=== PATIENT | female | born 1995 | race Caucasian/White ===

== ENCOUNTER 2021-07-17 20:45 | Emergency (ER) | payer MEDICAID, SELFPAY ==
[2021-07-17 20:48] VITALS: BP 180/111; PULSE 88; RESP 16; TEMP 36.4; O2SAT 97; BMI 35.2
[2021-07-17 20:50] VITALS: BP 180/111; PULSE 88; RESP 16; TEMP 36.4; O2SAT 97
--- NOTE | 2021-07-17 21:40 | RAD_ITS ---
STUDY: X-RAY CHEST REASON FOR EXAM: Female, 25 years old. Cough TECHNIQUE: PA and lateral views of the chest. COMPARISON: None. FINDINGS: Findings minimal linear density in the right lower lobe. There is slight elevation of the right hemidiaphragm. There is no demonstrated pleural abnormality. Normal size heart. Normal mediastinum and charley. Normal visualized pulmonary arteries. Normal visualized aortic arch and descending thoracic aorta. Normal visualized thoracic spine. Normal visualized ribs, clavicles, and shoulders. There is no demonstrated abnormality of the visualized soft tissue structures of the upper abdomen. RAD/Chest PA and Lateral IMPRESSION: Findings most consistent with mild right lower lobe atelectasis. Electronically Signed: Eboni Garduno MD at 0:22 EDT Tel , Service support ,
--- NOTE | 2021-07-17 22:25 | EDS_ITS ---
HPI History of Present Illness Chief Complaint: Cold Sx Informant: patient Narrative Narrative: Patient was told to come in by her boss to get a Covid test. She is evidently been coughing for about 3 or 4 days. She coughed so hard that she vomited and got lightheaded and almost passed out today. She did not hurt herself. She does not have any chest pain. She is generally not dyspneic. She occasionally gets into coughing fits like this. She does have a history of allergies but denies asthma. She thinks she may have heard wheezing on occasion. I asked her about blood pressure and she denies history. She has had no travel, surgery, immobilization personal or family history of DVT or PE. There is been no hemoptysis. She has no abdominal pain. No loss of taste or smell. She is eating and drinking well. [facility] Medical History Depression Home Medications albuterol sulfate [Ventolin HFA] 2 puff INHALATION Q4H PRN PRN #1 inhaler 07/17/21 [Rx Last Taken Unknown] venlafaxine [Effexor] 75 mg PO DAILY 07/17/21 [History Last Taken Unknown] Allergy/AdvReac Type Severity Reaction Status Date / Time amoxicillin Allergy Swelling Verified 07/17/21 20:47 Penicillins [PCN] Allergy Swelling Verified 07/17/21 20:47 Surgical History History of tonsillectomy Social History Smoking Status: Never smoker ROS ROS ED Constitutional Constitutional ED: Denies chills or fever(s) Eyes Eyes: Denies change in vision ENT ENT ED: Reports rhinorrhea and sore throat; Denies ear pain Cardiovascular Cardiovascular: Denies chest pain or palpitations Respiratory/Chest Respiratory/Chest: Reports cough; Denies dyspnea, dyspnea on exertion or sputum Gastrointestinal Gastrointestinal: Reports vomiting and other Details: Vomited once posttussive. However she is not nauseated and having no abdominal symptoms. ; Denies abdominal pain, diarrhea or nausea Musculoskeletal Musculoskeletal: Denies arthralgias or myalgias Integumentary Denies rash Neurologic Neurologic: Denies headache(s) Endocrine Endocrinology: Denies polydipsia or polyuria Allergic/Immunologic Allergic/Immunologic ED: Denies urticaria EXAM Physical Exam Const Vital Signs: 07/17/21 20:48 07/17/21 20:50 07/17/21 21:31 Temperature 97.6 F L 97.6 F L Temperature Source Temporal Temporal Pulse Rate 88 88 Respiratory Rate 16 16 Respiratory Effort Normal Non-Labored Respiratory Pattern Normal Blood Pressure 180/111 H 180/111 H Blood Pressure Mean 134 134 Pulse Ox 97 97 Oxygen Delivery Method Room Air Room Air 07/17/21 22:42 Temperature Temperature Source Pulse Rate Respiratory Rate Respiratory Effort Respiratory Pattern Blood Pressure 158/88 H Blood Pressure Mean 111 Pulse Ox Oxygen Delivery Method Positive well nourished HEENT Reports TM's clear and moist mucous membranes HEENT Narrative: No pharyngeal erythema, exudate or asymmetry. Voice is normal. Negative for trauma or tenderness Tympanic Membrane ED: Yes TM's clear Eyes Negative for PERRL or EOMs intact bilaterally Neck No no lymphadenopathy and No no JVD Resp normal respiratory effort and clear to auscultation bilaterally Effort and Inspection: Negative for pain with movement Auscultation: Negative for rales, rhonchi or wheezes Cardio regular rate and regular rhythm GI normal to inspection, nondistended, normoactive bowel sounds and non-tender Palpation: soft Back/Spine no CVA tenderness Extremity normal to inspection General Extremety ED: Negative for edema or tenderness General Extremity: Negative for edema Neuro Sensorium / Orientation: alert Psych mental status grossly normal Skin no rashes or lesions noted MDM MDM MDM Narrative Medical decision making narrative: Rapid Covid is negative. I looked at the patient's 2 view chest x-ray. There is some very minimal lacy markings at both bases that are likely secondary to overlying breast tissue. This does not look infiltrative. There is no pneumothorax. No subcu air. Cardiac silhouette is relatively normal. I think patient is okay to go home. She has a cough. No sign of Covid. She does state that she is having some intermittent wheezing and has used an inhaler before for allergies. We will write for albuterol. She needs to have her blood pressure checked to. When it came in it was high. It is down a bit lower now but still above where it should be at her age. Lab Data Attestation: I reviewed the patient's lab results. Discharge Plan Triage Chief Complaint: Cold Sx ED Provider: Bj Hill Dx/Rx/DC Orders Clinical Impression: URI (upper respiratory infection) Instructions: ED Bronchitis, No Antibiotic (Adult) Prescriptions: New albuterol sulfate [Ventolin HFA] 1 INHALER inhaler 2 puff inhalation Q4H PRN PRN (Reason: Wheezing) Qty: 1 RF: 0 No Action venlafaxine [Effexor] 75 mg Tablet 75 mg PO DAILY RF: 0 Primary Care Provider: Care Physician,No Primary Referrals: Rehana Menon MD [STAFF PHYSICIAN] - 3-5 Days if not improving Care Physician,No Primary [Primary Care Provider] - Disposition Disposition: Home, Self Care
[2021-07-17 22:42] VITALS: BP 158/88
[2021-07-17 23:33] VITALS: BP 130/78; PULSE 74; RESP 19; O2SAT 97
== END 2021-07-17 23:35 | disposition home or self-care (01) ==
PROVIDERS: Emergency Provider Emergency Medicine
DX: J06.9 Acute upper respiratory infection, unspecified (principal); F32.9 Major depressive disorder, single episode, unspecified; Z79.899 Other long term (current) drug therapy
CPT/HCPCS: 71046; 87426; 99282